=== PATIENT | female | born 1960 | race Caucasian/White ===

== ENCOUNTER → 2018-06-08 10:31 | Outpatient (CLI) | payer OTHER, BC, SELFPAY ==
--- NOTE | 2018-06-08 | DI.MRI.S_ITS ---
PROCEDURE: MR LUMBAR SPINE WO CON INDICATIONS: LOW BACK PAIN TECHNIQUE: Noncontrast sagittal T1 spin echo and T2 fast echo, sagittal STIR, axial T1 and T2 fast spin echo through the lumbar spine. In cases with scoliosis, additional coronal T2 fast spin echo may be performed. COMPARISON: None. FINDINGS: Image quality: Excellent. Alignment and Curvature: There is normal bony alignment. Bone Marrow: Marrow is of normal overall signal. No acute vertebral body compression fractures. Spinal Cord: Conus medullaris terminates at the L1-L2 level. Visualized cord demonstrates normal signal and size. Paraspinous Soft Tissues: No paravertebral masses. T12-L1: No canal stenosis or foraminal stenosis. Unremarkable facet joints L1-L2: Normal appearance. L2-L3: Normal appearance. L3-L4: A combination of a moderate diffuse disc bulge and mild facet and ligament hypertrophy results in mild canal stenosis. Foramina are patent. L4-L5: There is posterior annulus tear associated with disc bulge. There is mild bilateral facet hypertrophy. There is borderline canal stenosis. There is right foraminal annulus tear. There is no foraminal nerve impingement. L5-S1: There is a mild central posterior disc protrusion which abuts the bilateral S1 nerve roots in the lateral recesses. The foramina are patent. Facet joints are unremarkable. IMPRESSION: 1. There is mild canal stenosis at L3-L4 and borderline canal stenosis at L4-L5. 2. A mild central posterior disc protrusion at L5-S1 abuts the bilateral S1 nerve roots in the lateral recesses. Dictated by: Maxi Howell M.D. on 06/10/2018 at 8:18 Approved by: Maxi Howell M.D. on 06/10/2018 at 8:24
== END ==
PROVIDERS: Family Provider Physician Assistant Medical; PCP Physician Assistant Medical; Visit Provider Family Medicine Geriatric Medicine
DX: M51.26 Other intervertebral disc displacement, lumbar region (principal); M48.061 Spinal stenosis, lumbar region without neurogenic claudication
CPT/HCPCS: 72148

== ENCOUNTER → 2018-07-29 09:38 | Outpatient (CLI) | payer OTHER, SELFPAY ==
--- NOTE | 2018-07-29 | DI.MRI.S_ITS ---
PROCEDURE: MR THORACIC SPINE WO CON INDICATIONS: Cervicalgia TECHNIQUE: Noncontrast sagittal T1 spine echo and T2 fast spin echo, sagittal STIR, axial T1 and T2 fast spin echo through the thoracic spine. COMPARISON: None. FINDINGS: Image quality: Excellent. Alignment and Curvature: There is normal bony alignment. Bone Marrow: Marrow is of normal overall signal. Benign, intraosseous hemangiomas noted in the T4 vertebral body. No acute vertebral body compression fractures. Spinal Cord: Visualized spinal cord is normal in size and signal. Paraspinous Soft Tissues: No paravertebral masses. Miscellaneous: Mild right T2-T3 and T4-T5 facet hypertrophy. Mild bilateral T5-T6 facet hypertrophy. No central stenosis. Mild right T2-T3 and T4-T5 neural foraminal narrowing. Mild bilateral T5-T6 neural foraminal narrowing. IMPRESSION: 1. Multilevel facet arthropathy. 2. No central stenosis. 3. Mild right T2-T3 and T4-T5 neural foraminal narrowing. Mild bilateral T5-T6 neural foraminal narrowing. 4. No neural impingement. Dictated by: Veronica Ramsey MD, PhD on 07/29/2018 at 13:09 Approved by: Veronica Ramsey MD, PhD on 07/29/2018 at 13:13
--- NOTE | 2018-07-29 | DI.MRI.S_ITS ---
PROCEDURE: MR CERVICAL SPINE WO CON INDICATIONS: Cervicalgia TECHNIQUE: Noncontrast sagittal T1 spin echo and T2 fast spin echo, sagittal STIR, foraminal oblique sagittal T2 fast spin echo, and axial gradient echo or T2 fast spin echo through the cervical spine. COMPARISON: None. FINDINGS: Image quality: Excellent. Alignment and Curvature: Straightening of the normal cervical lordosis Bone Marrow: Marrow demonstrates normal overall signal. Spinal Cord: Visualized spinal cord has normal size and signal. No cerebellar tonsillar herniation. Paraspinous Soft Tissues: No paravertebral masses. Prevertebral soft tissues are normal in thickness. C2-C3: Normal appearance. C3-C4: Bilateral uncovertebral arthropathy and central posterior disc osteophyte complex. No high-grade central canal narrowing. Bilateral facet arthropathy is present. There is moderate right foraminal stenosis. No definite left foraminal stenosis C4-C5: Bilateral facet arthropathy. No central canal narrowing. Mild right foraminal narrowing. No left foraminal stenosis C5-C6: Bilateral uncovertebral arthropathy and posterior intervening disc osteophyte complex, and superimposed right paracentral disc osteophyte complex. Bilateral facet arthropathy is present. Mild central canal narrowing with effacement of the anterior thecal sac and mild mass effect on the cord. Minimal right foraminal narrowing. No definite left foraminal stenosis C6-C7: Bilateral uncovertebral arthropathy and posterior intervening disc osteophyte complex, and mild bilateral facet disease. No definite central canal stenosis. No foraminal narrowing C7-T1: Normal appearance. IMPRESSION: Diffuse cervical spondylosis with mild C5-C6 canal narrowing. Moderate right C3-C4 foraminal stenosis. Mild right C4-C5 foraminal narrowing Multilevel facet arthropathy and straightening of the normal cervical lordosis. Dictated by: Bola Pena M.D. on 07/29/2018 at 12:44 Approved by: Bola Pena M.D. on 07/29/2018 at 12:55
== END ==
PROVIDERS: PCP Physician Assistant Medical; Visit Provider Dentist Orthodontics and Dentofacial Orthopedics
DX: M54.2 Cervicalgia (principal); M47.812 Spondylosis without myelopathy or radiculopathy, cervical region; M48.02 Spinal stenosis, cervical region; M47.814 Spondylosis without myelopathy or radiculopathy, thoracic region; M48.04 Spinal stenosis, thoracic region
CPT/HCPCS: 72141; 72146

== ENCOUNTER → 2018-08-08 10:51 | Outpatient (CLI) | payer BC, SELFPAY ==
--- NOTE | 2018-08-08 | DI.MG.S_ITS ---
BILATERAL DIGITAL SCREENING MAMMOGRAM 3D/2D WITH CAD: 08/08/2018 CLINICAL: Routine screening. Family history of breast cancer. Comparison is made to exams dated: 08/07/2017 mammogram, 05/29/2016 mammogram, and 04/27/2015 mammogram - [facility]. There are scattered fibroglandular elements in both breasts. Current study was also evaluated with a Computer Aided Detection (CAD) system. There are bilateral punctate skin calcifications in both breasts that are stable to prior exams. No significant masses, calcifications, or other findings are seen in either breast. There has been no significant interval change. IMPRESSION: There is no mammographic evidence of malignancy. A 1 year screening mammogram is recommended. This exam was interpreted at Station ID: [id number]. NOTE: For mammograms, a report in lay terms will be sent to the patient. Approximately 15% of breast malignancies will not be visualized mammographically. In the management of a palpable breast mass, a negative mammogram must not discourage biopsy of a clinically suspicious lesion. Electronically Signed By: Omari Garcia M.D. ecl/:08/09/2018 03:26:22 letter sent: Normal Exam ACR BI-RADS Category 2: Benign Finding(s) 3342F
== END ==
PROVIDERS: PCP Physician Assistant Medical; Visit Provider Physician Assistant Medical
DX: Z12.31 Encounter for screening mammogram for malignant neoplasm of breast (principal)
CPT/HCPCS: 77063; 77067

== ENCOUNTER → 2020-10-12 10:19 | Outpatient (CLI) | payer BC, SELFPAY ==
--- NOTE | 2020-10-12 | DI.MG.S_ITS ---
BILATERAL DIGITAL SCREENING MAMMOGRAM 3D/2D WITH CAD: 10/12/2020 Comparison is made to exams dated: 08/08/2018 mammogram, 08/07/2017 mammogram, and 05/29/2016 mammogram - [facility]. There are scattered fibroglandular elements in both breasts. Current study was also evaluated with a Computer Aided Detection (CAD) system. There are benign calcifications in both breasts. No significant masses, calcifications, or other findings are seen in either breast. There has been no significant interval change. IMPRESSION: BENIGN There is no mammographic evidence of malignancy. A 1 year screening mammogram is recommended. This exam was interpreted at Station ID: [id number]. NOTE: For mammograms, a report in lay terms will be sent to the patient. Approximately 15% of breast malignancies will not be visualized mammographically. In the management of a palpable breast mass, a negative mammogram must not discourage biopsy of a clinically suspicious lesion. Electronically Signed By: Boo Urena acr/penrad:10/12/2020 12:53:25 letter sent: Normal Exam ACR BI-RADS Category 2: Benign Finding(s) 3342F
== END ==
PROVIDERS: PCP Physician Assistant Medical; Referring Provider Physician Assistant Medical; Visit Provider Physician Assistant Medical
DX: Z12.31 Encounter for screening mammogram for malignant neoplasm of breast (principal)
CPT/HCPCS: 77063; 77067

== ENCOUNTER → 2022-06-15 13:56 | Outpatient (CLI) | payer BC, SELFPAY ==
--- NOTE | 2022-06-15 | DI.MG.S_ITS ---
BILATERAL DIGITAL SCREENING MAMMOGRAM 3D/2D WITH CAD: 06/15/2022 CLINICAL: Routine screening. Family history of breast cancer. Comparison is made to exams dated: 10/12/2020 mammogram, 08/08/2018 mammogram, and 08/07/2017 mammogram - [facility]. Both breasts are almost entirely fatty (category a/<25% glandular tissue). Current study was also evaluated with a Computer Aided Detection (CAD) system. There are benign calcifications in both breasts. No significant masses, calcifications, or other findings are seen in either breast. There has been no significant interval change. IMPRESSION: BENIGN There is no mammographic evidence of malignancy. A 1 year screening mammogram is recommended. Based on the Tyrer Cuzick model (a risk assessment model) the patient's lifetime risk is 7.5% and her 10 year risk is 3.2%. According to the ACR, ACS, and NCCN guidelines, an annual breast MRI exam along with mammogram is recommended if the patient's lifetime risk is 20% or greater. This exam was interpreted at Station ID: [id number]. NOTE: For mammograms, a report in lay terms will be sent to the patient. Approximately 15% of breast malignancies will not be visualized mammographically. In the management of a palpable breast mass, a negative mammogram must not discourage biopsy of a clinically suspicious lesion. Electronically Signed By: Eitan lucio/jed:06/15/2022 14:17:16 letter sent: Normal Exam ACR BI-RADS Category 2: Benign Finding(s) 3342F
== END ==
PROVIDERS: PCP Physician Assistant Medical; Referring Provider Physician Assistant Medical; Visit Provider Physician Assistant Medical
DX: Z12.31 Encounter for screening mammogram for malignant neoplasm of breast (principal); Z80.3 Family history of malignant neoplasm of breast
CPT/HCPCS: 77063; 77067

== ENCOUNTER → 2023-06-25 15:14 | Outpatient (CLI) | payer BC, SELFPAY ==
--- NOTE | 2023-06-25 15:15 | DI.MG.S_ITS ---
BILATERAL DIGITAL SCREENING MAMMOGRAM 3D/2D WITH CAD: 06/25/2023 CLINICAL: Routine screening. Family history of breast cancer. Comparison is made to exams dated: 06/15/2022 mammogram, 10/12/2020 mammogram, and 08/08/2018 mammogram - [facility]. Both breasts are almost entirely fatty (category a/<25% glandular tissue). Current study was also evaluated with a Computer Aided Detection (CAD) system. There are benign calcifications in both breasts. No significant masses, calcifications, or other findings are seen in either breast. There has been no significant interval change. IMPRESSION: BENIGN There is no mammographic evidence of malignancy. A 1 year screening mammogram is recommended. Based on the Tyrer Cuzick model (a risk assessment model) the patient's lifetime risk is 7.2% and her 10 year risk is 3.2%. According to the ACR, ACS, and NCCN guidelines, an annual breast MRI exam along with mammogram is recommended if the patient's lifetime risk is 20% or greater. This exam was interpreted at Station ID: [id number]. NOTE: For mammograms, a report in lay terms will be sent to the patient. Approximately 15% of breast malignancies will not be visualized mammographically. In the management of a palpable breast mass, a negative mammogram must not discourage biopsy of a clinically suspicious lesion. Electronically Signed By: Eitan lucio/jed:06/26/2023 09:50:08 letter sent: Normal Exam ACR BI-RADS Category 2: Benign Finding(s) 3342F
== END ==
PROVIDERS: PCP Physician Assistant Medical; Referring Provider Physician Assistant Medical; Visit Provider Physician Assistant Medical
DX: Z12.31 Encounter for screening mammogram for malignant neoplasm of breast (principal); Z80.3 Family history of malignant neoplasm of breast
CPT/HCPCS: 77063; 77067

== ENCOUNTER → 2024-07-25 | Outpatient (CLI) | payer BC, SELFPAY ==
--- NOTE | 2024-07-25 13:58 | DI.MG.S_ITS ---
MM screening mammo BI: 07/25/2024. BI-RADS: 1 CLINICAL: 63-year old female for bilateral screening mammogram. Tyrer-Cuzick lifetime risk of 6.9%. No personal or first-degree family history of breast cancer. Current reported family history of breast cancer: paternal aunt. The patient had a prior right breast biopsy. The patient is status-post reduction mammoplasty. PRIOR EXAMS 06/25/2023, 06/15/2022, 10/12/2020, 08/08/2018, 08/07/2017, 05/29/2016, 04/27/2015. MAMMOGRAPHY TECHNIQUE: 2D and 3D (tomosynthesis) digital mammographic views obtained, with additional images as needed for full coverage. Current study was also evaluated with a Computer Aided Detection (CAD) system. DENSITY A. The breasts are almost entirely fatty. MAMMOGRAPHY FINDINGS Bilateral: No suspicious mass, asymmetry, microcalcification, or other abnormality seen. IMPRESSION: * No evidence of malignancy. RECOMMENDATIONS Bilateral * Annual screening mammography. OVERALL ASSESSMENT CATEGORY BI-RADS-1: Negative. The [employer] recommends annual screening mammography beginning at age 40 for women with average risk of breast cancer. ELECTRONICALLY SIGNED: Carmenza Smith M.D. on 07/27/2024 at 04:40:50 PM PT Interpreting Station ID: [id number]
== END ==
LOC: MAMMO 13:56
PROVIDERS: PCP Physician Assistant; Referring Provider Physician Assistant; Visit Provider Physician Assistant
DX: Z12.31 Encounter for screening mammogram for malignant neoplasm of breast (principal); Z80.3 Family history of malignant neoplasm of breast; R92.313 Mammographic fatty tissue density, bilateral breasts
CPT/HCPCS: 77063; 77067